=== PATIENT | female | born 1980 | race Caucasian/White ===

== ENCOUNTER → 2021-04-13 | Outpatient (CLI) | payer OTHER | LOC: KOH-I 13:08 | DX: M25.561 Pain in right knee (principal); M25.562 Pain in left knee | CPT/HCPCS: 73560 ==

== ENCOUNTER → 2021-05-10 | Outpatient (CLI) | payer OTHER | LOC: KOH-I 13:00 | DX: M22.42 Chondromalacia patellae, left knee (principal) | CPT/HCPCS: 73721 ==